=== PATIENT | male | born 1985 | race Caucasian/White ===

== ENCOUNTER 2024-10-08 15:45 | Emergency (ER) | payer OTHER, SELFPAY ==
[2024-10-08 15:46] VITALS: BP 187/89; PULSE 120; RESP 15; TEMP 36.9; O2SAT 100; BMI 29.4
--- NOTE | 2024-10-08 17:40 | EKG12_ITS ---
Test Reason : HEAD PAIN Blood Pressure : */* mmHG Vent. Rate : 96 BPM Atrial Rate : 96 BPM P-R Int : 140 ms QRS Dur : 90 ms QT Int : 336 ms P-R-T Axes : 33 12 27 degrees QTcB Int : 424 ms Normal sinus rhythm Normal ECG Confirmed by NIKOLAS BRONSON, ENEIDA ([id number]), development editor DAVID BROWN ([id number]) on 10/09/2024 8:25:18 AM Referred By: Confirmed By: ENEIDA CONNOR MD
[2024-10-08 17:46] VITALS: BP 161/78; PULSE 77; RESP 18; O2SAT 100
--- NOTE | 2024-10-08 18:05 | RAD_ITS ---
STUDY: X-RAY CHEST REASON FOR EXAM: Male, 39 years old. hypertension TECHNIQUE: PA and lateral COMPARISON: None. FINDINGS: The lungs are clear and expanded. There is no demonstrated pleural abnormality. Normal size heart. Normal mediastinum and [place]. Normal visualized pulmonary arteries. Normal visualized aortic arch and descending thoracic aorta. Normal visualized thoracic spine. Normal visualized ribs, clavicles, and shoulders. There is no demonstrated abnormality of the visualized soft tissue structures of the upper abdomen. RAD/Chest PA and Lateral IMPRESSION: Normal x-ray examination of the chest. Electronically Signed: Joselito Brown MD at 18:46 EST ,
[2024-10-08 18:15] LABS: Absolute Lymphocyte Count 2.12 X10^3/uL (0.83-4.51); Absolute Neutrophil Count 10.7 X10^3/uL (2.0-7.7); Basophil# 0.04 X10^3/uL; Basophil% 0.3 % (0-1); Eosinophil# 0.05 X10^3/uL; Eosinophils% 0.4 % (0-5); Hematocrit 44.5 % (40-54); Hemoglobin 14.9 g/dL (13.0-16.5); Lymphocyte # 2.12 X10^3/ul (0.83-4.51); Lymphocyte % 15.5 % (19-41); Mean Corp Hgb Conc 33.5 g/dL (32-36); Mean Corpuscular Hgb 29.2 pg (27.0-32.0); Mean Corpuscular Volume 87.3 fL (80-94); Mean Platelet Vol. 8.8 fl (6.2-12.0); Monocyte# 0.74 X10^3/uL; Monocyte% 5.4 % (0-10); NRBC Flagged by Analyzer 0 % (0-5); Neutrophil # 10.66 X10^3/uL (2.7-7.7); Neutrophil % 77.9 % (47-70); Platelet Count 359 K/mm3 (150-450); RBC Distribution Width CV 12.7 % (11.6-14.6); RBC Distribution Width SD 40.3 fl (35.1-43.9); White Blood Count 13.7 K/mm3 (4.4-11.0)
--- NOTE | 2024-10-08 18:25 | CM.ED ---
Social Work Reason for visit: No PCP SW introduced self, role with [facility] and reason for visit. Patient verified that he does not currently have a PCP. [facility] provider directory given to patient. No further needs identified. Melissa Fortune, CASH APPLICATIONS ASSOCIATE, CUFF TURNER MACHINE OPERATOR
[2024-10-08 18:33] LABS: ALB/GLOB Ratio 1.1 RATIO (0.9-2.4); AST(SGOT) 37 U/L (15-37); Alanine Aminotransfer ALT/SGPT 122 U/L (16-61); Albumin, Serum 4.4 g/dL (3.2-5.0); Alkaline Phosphatase 77 U/L (45-117); Anion Gap 4 (5-15); BUN 11 mg/dL (7-18); BUN/Creat Ratio 12.8 RATIO (10-20); Calcium,Total 9.7 mg/dL (8.5-10.1); Chloride 106 mmol/L (98-107); Creatinine, Serum 0.86 mg/dL (0.70-1.30); EST Glomerular Filtration Rate 105 mL/min (>60); Est Glom Filt Rate - Afr Amer 127 mL/min (>60); Estimated Creatinine Clearance 140.17 ml/min; Glucose 105 mg/dL (74-106); Potassium 3.8 mmol/L (3.5-5.1); Protein, Total 8.4 g/dL (6.4-8.2); Sodium Level 139 mmol/L (136-145)
--- NOTE | 2024-10-08 18:35 | CT_ITS ---
STUDY: CT BRAIN WITHOUT CONTRAST REASON FOR EXAM: Male, 39 years old. headache, blurry vision RADIATION DOSAGE (If Supplied By Facility): CTDIvol = ( 44.99 ) mGy, DLP = ( 812.98 ) mGycm TECHNIQUE: Transaxial CT imaging of the brain was performed without administration of intravenous contrast material. Individualized dose optimization techniques were used for this CT. COMPARISON: No relevant priors. FINDINGS: Normal soft tissue structures. Normal calvarium. Normal size ventricles and extra-axial spaces for the patient''s age. Normal white matter tracts of the cerebral hemispheres. Normal basal ganglia and thalami. Normal brainstem. Normal cerebellum. There is no intracranial hemorrhage. There are no findings of an acute ischemic infarction. Large mucous retention cyst or polyp in left maxillary sinus. CT/Brain/Head without Contrast IMPRESSION: Normal unenhanced CT scan of the brain. Left maxillary sinus disease likely chronic Electronically Signed: Joselito Brown MD at 20:09 EST Reading Location ID and State: [facility] / [place] Tel , Service support ,
[2024-10-08 19:00] VITALS: BP 154/92; PULSE 88; RESP 18; O2SAT 99
--- NOTE | 2024-10-08 19:16 | EDS_ITS ---
HPI History of Present Illness Chief Complaint: Hypertension Informant: patient Narrative Narrative: Patient is a 39-year-old male denies any significant past medical history but notes he does not regularly go to the doctor presenting with 1 month of not feeling good. He has had 3 to 4 weeks of episodes of feeling like his back of his neck and the back of his head are on fire. He states sometimes he will get blurry vision or his face will feel heavy. He denies headache but states he feels like there is pressure in his head. He denies any associated chest pain, chest pressure, shortness of breath, leg swelling. He denies any wring his ears. Denies any runny nose. Denies any fever or chills. Went to urgent care today where they said his blood pressure and heart rate were elevated and recommend he come to the ER. He notes that his paternal grandfather of a heart attack at age 45 and his paternal uncle had a heart attack at a young age. He notes both his parents have high blood pressure. He denies any sick contacts. He denies any association of his symptoms with location. Does not report any aggravating or alleviating factors. States he is actually been cutting back on his caffeine over the past month. He does dip. He notes that he smoked when he was in his 20s. He does drink alcohol couple times a week but denies any history of dependency. Denies any illicit drug use. Denies taking any [id number] supplements. [facility] Medical History no medical history Home Medications ?Medication ?Instructions ?Recorded ?Last Taken ?Type amoxicillin 875 mg-potassium 1 tab PO BID #20 tabs 10/08/24 Unknown Rx clavulanate 125 mg tablet Allergy/AdvReac Type Severity Reaction Status Date / Time No Known Allergies Allergy Verified 10/08/24 15:46 Social History Smoking Status: Current some day smoker tobacco type: smokeless tobacco ROS ROS ED Constitutional Constitutional ED: Reports sweats; Denies chills or fever(s) Eyes Eyes: Reports blurry vision ENT ENT ED: Denies rhinorrhea or sore throat Cardiovascular Cardiovascular: Denies chest pain or palpitations Respiratory/Chest Respiratory/Chest: Denies cough or dyspnea Gastrointestinal Gastrointestinal: Denies abdominal pain, nausea or vomiting Musculoskeletal Musculoskeletal: Denies arthralgias or myalgias Neurologic Neurologic: Reports other Details: Reports head pressure Psychiatric Psychiatric: Denies anxiety or depression Hematologic/Lymphatic Hematologic/Lymphatic: Denies easy bleeding or easy bruising EXAM Physical Exam Const Vital Signs: 10/08/24 15:46 10/08/24 17:46 10/08/24 18:15 Temperature 98.5 F Temperature Source Oral Pulse Rate 120 H 77 Respiratory Rate 15 18 Respiratory Effort Normal Non-Labored Respiratory Pattern Normal Blood Pressure 187/89 H 161/78 H Blood Pressure Mean 121 105 Pulse Ox 100 100 Oxygen Delivery Method Room Air Room Air 10/08/24 19:00 10/08/24 21:00 Temperature Temperature Source Pulse Rate 88 83 Respiratory Rate 18 18 Respiratory Effort Respiratory Pattern Blood Pressure 154/92 H 149/86 H Blood Pressure Mean 112 107 Pulse Ox 99 98 Oxygen Delivery Method Room Air Room Air Positive well nourished and well developed General Appearance ED: well developed and NAD HEENT Reports TM's clear and moist mucous membranes Negative for trauma Tympanic Membrane ED: Yes TM's clear Eyes PERRL and EOMs intact bilaterally Neck supple and no JVD Chest Wall inspection of chest normal and palpation of chest normal Resp normal respiratory effort and clear to auscultation bilaterally Cardio regular rate and regular rhythm GI normal to inspection, nondistended, normoactive bowel sounds and non-tender Palpation: soft; Negative for tender or guarding Extremity normal to inspection Extremity Narrative: 2+ radial and PT pulses General Extremety ED: Negative for edema or tenderness General Extremity: Negative for edema Neuro oriented x3, CN's II-XII intact bilaterally and no sensory deficits noted Sensorium / Orientation: alert Motor Exam: strength 5/5 throughout; Negative for general weakness Psych mental status grossly normal Skin Skin Narrative: Face is flushed [facility] Narrative Medical decision making narrative: Patient is evaluated for elevated blood pressure and tachycardia. He was nonto xic no acute distress. Heart rate and blood pressure are elevated. Likely symptoms going on for a month. He gets associated headaches. Differential includes uncontrolled hypertension, dehydration, BONIFACIO, drug intoxication, thyroid storm, pneumonia. Given longevity of symptoms and lack of chest pain low suspicion for ACS or aortic dissection. He is not having chest pain shortness of breath low suspicion for PE. He is 100% on room air with no tachypnea. Patient's face slightly flushed but is otherwise well-appearing. Normal physical exam. Equal pulses in all 4 extremities. Workup shows a mild leukocytosis of 13.7 which is nonspecific. But otherwise largely normal. Chest x-ray viewed by myself as well as radiology does not show any acute infiltrate. CT of the brain obtained to ensure that patient does not have any space-occupying lesion that is causing his headaches and hypertension. It shows no acute process but does show what appears to be chronic left maxillary sinus disease. Patient notes that the fullness on his head does seem to be more in the left side. Will treat him with a course of antibiotics. While in the ER patient's blood pressure discharge normalized on last check is 136 systolic. Patient's tachycardia resolved without any further intervention. He does plan on following up with Dr. Way. Counseled on the importance of keeping his appointment. Counseled on get a blood pressure cuff and checking his blood pressure couple times a week until he follows up. Given return precautions. Patient verbalized agreement or stands plan. Discharged home in stable and improved condition. Lab Data Attestation: I reviewed the patient's lab results. Labs: Laboratory Results - last 24 hr 10/08/24 10/08/24 18:00 20:17 WBC 13.7 H RBC 5.10 Hgb 14.9 Hct 44.5 MCV 87.3 MCH 29.2 MCHC 33.5 RDW Std Deviation 40.3 RDW Coeff of Van 12.7 Plt Count 359 MPV 8.8 Immature Gran % (Auto) 0.500 Neut % (Auto) 77.9 H Lymph % (Auto) 15.5 L [place] % (Auto) 5.4 Eos % (Auto) 0.4 Baso % (Auto) 0.3 Absolute Neuts (auto) 10.7 H Absolute Lymphs (auto) 2.12 Nucleated RBC % 0 Sodium 139 Potassium 3.8 Chloride 106 Carbon Dioxide 29.0 Anion Gap 4 L BUN 11 Creatinine 0.86 Estim Creat Clear Calc 140.17 Est GFR (MDRD) Af Amer 127 Est GFR (MDRD) Non-Af 105 BUN/Creatinine Ratio 12.8 Glucose 105 Calcium 9.7 Total Bilirubin 0.40 AST 37 ALT 122 H Alkaline Phosphatase 77 Total Protein 8.4 H Albumin 4.4 Globulin 4.0 Albumin/Globulin Ratio 1.1 TSH 1.220 Urine Color Yellow Urine Clarity Sl Cldy Urine pH 7.0 Ur Specific [place] 1.010 Urine Protein Negative Urine Glucose (UA) Normal Urine Ketones Negative Urine Occult Blood 10 H Urine Nitrite Negative Urine Bilirubin Negative Urine Urobilinogen Normal Ur Leukocyte Esterase Negative Urine RBC 0-5 SEEN Urine WBC 0 SEEN Ur Squamous Epith Cells 0-5 SEEN Amorphous Sediment 1+ PHOS Urine Bacteria 0 SEEN Urine Mucus 0 SEEN Urine Opiates Screen NEGATIVE Urine Methadone Screen NEGATIVE Ur Barbiturates Screen NEGATIVE Ur Phencyclidine Scrn NEGATIVE Ur Amphetamines Screen NEGATIVE MDMA (Ecstasy) Screen NEGATIVE U Benzodiazepines Scrn NEGATIVE Urine Cocaine Screen NEGATIVE U Cannabinoids Screen NEGATIVE Ur Drug Screen Comment Radiography Chest X-Ray - ED: 2 View, Read by ED Physician, Read by Radiologist and No Acute Disease Diagnostic Testing: Clinical Impression(s) from Imaging Studies Chest X-Ray 10/08/24 18:05 IMPRESSION: Normal x-ray examination of the chest. Electronically Signed: Joselito Brown MD at 18:46 EST , Brain CT 10/08/24 18:35 IMPRESSION: Normal unenhanced CT scan of the brain. Left maxillary sinus disease likely chronic Electronically Signed: Joselito Brown MD at 20:09 EST , Rhythm Strip Rhythm Strip: Sinus Rhythm Rate: 96 Ectopy: None EKG Initial EKG: Attestation: I personally reviewed and interpreted this EKG as follows: Interpretation: Sinus Rhythm Comments: Normal sinus rhythm at a rate of 96 bpm Normal axis Normal intervals Normal ST segments Discharge Plan Triage Chief Complaint: Hypertension ED Provider: Elsa Ojeda Dx/Rx/DC Orders Clinical Impression: Blood pressure elevated without history of HTN, Tachycardia, unspecified, Chronic left maxillary sinusitis Instructions: ED Hypertension, To Be Confirmed, ED Sinusitis (Antibiotic Treatment) Prescriptions: New amoxicillin-pot clavulanate 875-125 mg tablet 1 tab PO BID Qty: 20 0RF Primary Care Provider: Care Physician,No Primary Referrals: Adolph Way DO [Med Staff - Watch Inspector Final Movement] - As soon as possible Care Physician,No Primary [Primary Care Provider] - Activity Restrictions/Additional Instructions: Take your blood pressure once a day or once every other day. Keep a record of this for any follow-up with primary care doctor. Patient drinking plenty of fluids and moderating her caffeine intake. Print Language: Uzbek Disposition Disposition: Home, Self Care
[2024-10-08 20:23] LABS: Bacteria 0 SEEN /hpf (None Seen); Mucous, Urine 0 SEEN /hpf (<or=2+); White Blood Cells 0 SEEN /hpf (0-5)
[2024-10-08 20:28] LABS: Glucose, Dipstick Normal (Normal); Ketone-Dipstick Negative (Negative); Leukocyte Esterase-Dipstick Negative /ul (Negative); Nitrite-Dipstick Negative (Negative); Occult Blood-Urine 10 /ul (Negative); Protein-Dipstick Negative (Negative); Urine Bilirubin Dipstick Negative (Negative); Urine Urobilinogen Normal (Normal)
[2024-10-08 20:41] LABS: Color, Urine Yellow (Yellow); Red Blood Cells-Urine 0-5 SEEN /hpf (0-5); Squamous Epithelial Cells - UA 0-5 SEEN /hpf (0-5); Urine Clarity Sl Cldy (Clear)
[2024-10-08 20:42] LABS: Amorphous Sediment 1+ PHOS
[2024-10-08 21:00] VITALS: BP 149/86; PULSE 83; RESP 18; O2SAT 98
[2024-10-08 21:33] LABS: Amphetamine Urine VISTA NEGATIVE (<1000 ng/mL); Barbiturate Urine VISTA NEGATIVE (< 200 ng/mL); Benzodiazepine Urine VISTA NEGATIVE (< 200 ng/mL); Cocaine Urine VISTA NEGATIVE (< 300 ng/mL); Ecstacy Urine VISTA NEGATIVE (< 500 ng/mL); Methadone Urine VISTA NEGATIVE (< 300 ng/mL); PCP Urine VISTA NEGATIVE (< 25 ng/mL); THC Urine VISTA NEGATIVE (< 50 ng/mL); Vista UDS pH Range 6
[2024-10-08 22:17] VITALS: BP 137/85; PULSE 82; RESP 18; TEMP 36.7; O2SAT 96
== END 2024-10-08 22:21 | disposition home or self-care (01) ==
PROVIDERS: Emergency Provider Emergency Medicine; Visit Provider Emergency Medicine
DX: I10 Essential (primary) hypertension (principal); R00.0 Tachycardia, unspecified; F17.220 Nicotine dependence, chewing tobacco, uncomplicated; Z82.49 Family history of ischemic heart disease and other diseases of the circulatory system
CPT/HCPCS: 70450; 71046; 80053; 80307; 81001; 84443; 85025; 93005; 99282; A4216